=== PATIENT | male | born 1960 | race African-American/Black ===

== ENCOUNTER 2024-03-06 21:44 | Inpatient (IN) | payer OTHER ==
[2024-03-06 21:54] VITALS: BMI 27.7
[2024-03-06 23:26] LABS: HEMATOCRIT 33.1 % (35.4-49); HEMOGLOBIN 10.9 GM/dL (11.7-16.9); MCH 28.8 pg (25.7-33.7); MEAN CELL VOLUME 87.2 fl (80-96); MEAN PLT VOLUME 8.2 fl (7.5-11.1); PLATELET COUNT 320 10^3/uL (134-434); RDW 13.3 % (11.9-15.9); WHITE BLOOD COUNT 11.9 K/mm3 (4.0-10.0)
[2024-03-06 23:31] LABS: INR 1.2 (0.83-1.09); PROTHROMBIN TIME (PATIENT) 13.5 SEC (9.7-13.0)
[2024-03-06 23:33] LABS: ACTIVATED PTT 32.3 SECONDS (25.2-36.5)
[2024-03-06 23:45] LABS: POTASSIUM 3.3 mmol/L (3.5-5.1)
[2024-03-06] MEDS ORDERED: oxyCODONE HCL 5 MG TABLET ONE (23:45)
[2024-03-06 23:48] LABS: CALCIUM 8.6 mg/dL (8.5-10.1)
[2024-03-06 23:49] LABS: ALBUMIN 2.8 g/dl (3.4-5.0); BLOOD UREA NITROGEN 15.2 mg/dL (7-18); MAGNESIUM 2.2 mg/dL (1.8-2.4)
[2024-03-06] MEDS: oxyCODONE HCL 5 MG TABLET PO ONE (23:49)
[2024-03-06 23:52] LABS: CREATININE 0.9 mg/dL (0.55-1.3)
[2024-03-06 23:53] LABS: BILIRUBIN,TOTAL 0.4 mg/dL (0.2-1); TOT PROT 7.5 g/dl (6.4-8.2)
[2024-03-07 00:12] LABS: OVALOCYTE 1+; TEAR DROP CELLS 1+
[2024-03-07 00:15] LABS: ERYTHROCYTE SEDIMENTATION RATE 69 mm/hr (0-20)
[2024-03-07 00:16] LABS: PLATELET ESTIMATE ADEQUATE; SMUDGE CELLS FEW
[2024-03-07] MEDS ORDERED: VANCOMYCIN 2,000 MG in DEXTROSE 5%-WATER - 500 ML IVPB ONE (00:49)
[2024-03-07] MEDS ORDERED: CEFEPIME 2 GM/100 ML BAG IVPB ONE (00:54)
[2024-03-07] MEDS ORDERED: oxyCODONE HCL 10 MG SUSTAINED ACTING TABLET ONE (00:57)
[2024-03-07] MEDS: oxyCODONE HCL 10 MG SUSTAINED ACTING TABLET PO ONE (01:03)
[2024-03-07] MEDS: CEFEPIME HCL 2 GM VIAL (RESTRICTED TO ID) IVPB ONE (01:04)
[2024-03-07] MEDS: VANCOMYCIN/WATER 2 GRAMS 2,000 MG/400 ML PIGGYBACK IVPB ONE (02:18)
[2024-03-07] MEDS: PANTOPRAZOLE 40 MG TABLET PO SCH (04:26)
[2024-03-07] MEDS: oxyCODONE HCL 5 MG TABLET PO PRN (05:47)
[2024-03-07] MEDS: HEPARIN NA (PORCINE) 5,000 UNITS/ML 1ML VIAL SQ SCH (05:48)
[2024-03-07] MEDS: LEVOTHYROXINE NA 50 MCG TABLET (FP) PO SCH (06:04)
[2024-03-07] MEDS: KETOROLAC TROMETHAMINE 30 MG/1 ML VIAL IVPUSH ONE ×2 (06:39→22:44)
[2024-03-07] MEDS: INSULIN ASPART SLIDING SCALE (NOVOLOG) 1 VIAL SQ SCH (07:02)
[2024-03-07] MEDS ORDERED: oxyCODONE HCL 5 MG TABLET PO SCH (10:00)
[2024-03-07] MEDS: ASCORBIC ACID 500 MG TABLET (FP) PO SCH (10:39)
[2024-03-07] MEDS: GABAPENTIN 400 MG CAPSULE PO SCH (10:39)
[2024-03-07] MEDS: ZINC SULFATE 220 MG CAPSULE (FP) PO SCH (10:39)
[2024-03-07] MEDS: MULTIVITAMINS THER W-MINERALS COMBO TABLET (FP) PO SCH (10:39)
[2024-03-07] MEDS: DULoxetine HCL 30 MG CAPSULE.DR PO SCH (10:39)
[2024-03-07] MEDS: CHOLECALCIFEROL (VIT D3) 5000 UNITS (125 MCG) CAP PO SCH (10:40)
[2024-03-07] MEDS: ATORVASTATIN CA 20 MG TABLET (FP) PO SCH (22:44)
[2024-03-08] MEDS: oxyCODONE HCL 5 MG TABLET PO ONE ×2 (03:57→07:34)
[2024-03-08] MEDS ORDERED: oxyCODONE HCL 5 MG TABLET PO PRN (06:17)
[2024-03-08] MEDS: oxyCODONE HCL 5 MG TABLET PO PRN (11:13)
[2024-03-08] MEDS: COLLAGENASE CLOSTRIDIUM HIST. 30 GRAMS TUBE TP SCH (11:14)
[2024-03-08 11:35] LABS: BASO % 0.8 % (0-2.0); EOS % 3.4 % (0-4.5); HEMATOCRIT 33.1 % (35.4-49); LYMPH % 27.6 % (8-40); MCHC 33.1 g/dl (32.0-35.9); MEAN CELL VOLUME 87.7 fl (80-96); MEAN PLT VOLUME 7.8 fl (7.5-11.1); MONO % 11.5 % (3.8-10.2); NEUT % 56.7 % (42.8-82.8); PLATELET COUNT 323 10^3/uL (134-434); RBC 3.78 M/mm3 (4.00-5.60); RDW 13.5 % (11.9-15.9); WHITE BLOOD COUNT 8.5 K/mm3 (4.0-10.0)
[2024-03-08 11:55] LABS: CALCIUM 8.4 mg/dL (8.5-10.1)
[2024-03-08 11:58] LABS: CREATININE 0.8 mg/dL (0.55-1.3)
[2024-03-08] MEDS: oxyCODONE HCL 10 MG SUSTAINED ACTING TABLET PO SCH (22:08)
[2024-03-09 09:37] LABS: BASO % 0.9 % (0-2.0); EOS % 4.2 % (0-4.5); HEMOGLOBIN 11.3 GM/dL (11.7-16.9); LYMPH % 31.6 % (8-40); MCH 29.5 pg (25.7-33.7); MCHC 34.1 g/dl (32.0-35.9); MEAN CELL VOLUME 86.4 fl (80-96); MEAN PLT VOLUME 8.6 fl (7.5-11.1); MONO % 11.4 % (3.8-10.2); NEUT % 51.9 % (42.8-82.8); PLATELET COUNT 355 10^3/uL (134-434); RBC 3.82 M/mm3 (4.00-5.60); RDW 13.6 % (11.9-15.9); WHITE BLOOD COUNT 8.1 K/mm3 (4.0-10.0)
[2024-03-09 10:31] LABS: ERYTHROCYTE SEDIMENTATION RATE 85 mm/hr (0-20)
[2024-03-10] MEDS ORDERED: LATANOPROST 0.005% OPHTH SOLN 2.5ML BOTTLE OU ONE (04:36)
[2024-03-10] MEDS: LATANOPROST 0.005% OPHTH SOLN 2.5ML BOTTLE OU SCH (06:23)
[2024-03-11 09:39] LABS: BASO % 1.1 % (0-2.0); EOS % 4.5 % (0-4.5); HEMATOCRIT 34.1 % (35.4-49); HEMOGLOBIN 11.8 GM/dL (11.7-16.9); LYMPH % 29.3 % (8-40); MCH 30.3 pg (25.7-33.7); MCHC 34.7 g/dl (32.0-35.9); MEAN CELL VOLUME 87.2 fl (80-96); MEAN PLT VOLUME 8.7 fl (7.5-11.1); MONO % 11.1 % (3.8-10.2); PLATELET COUNT 372 10^3/uL (134-434); RBC 3.91 M/mm3 (4.00-5.60); RDW 13.8 % (11.9-15.9); WHITE BLOOD COUNT 7.5 K/mm3 (4.0-10.0)
[2024-03-11 10:40] LABS: ERYTHROCYTE SEDIMENTATION RATE 87 mm/hr (0-20)
[2024-03-11] MEDS: LEVOTHYROXINE NA 50 MCG TABLET (FP) PO ONE (11:51)
[2024-03-11 18:32] LABS: INR 1.08 (0.83-1.09); PROTHROMBIN TIME (PATIENT) 12.4 SEC (9.7-13.0)
[2024-03-12] MEDS ORDERED: BUPIVACAINE HCL/PF 0.5% (5MG/ML) 10 ML VIAL ONE (07:13)
[2024-03-12] MEDS ORDERED: LIDOCAINE HCL 1%, 10 MG/ML (20ML VIAL) ONE (07:13)
[2024-03-12] MEDS ORDERED: PROPOFOL 20 ML ONE (07:26)
[2024-03-12] MEDS ORDERED: SUCCINYLCHOLINE CHLORIDE 200 MG/10 ML SYRINGE ONE (07:26)
[2024-03-12] MEDS ORDERED: MIDAZOLAM HCL 2 MG/2 ML SINGLE DOSE VIAL ONE ×2 (07:26→07:42)
[2024-03-12] MEDS: LIDOCAINE HCL 1%, 10 MG/ML (20ML VIAL) NR ONE (07:42)
[2024-03-12] MEDS ORDERED: PROMETHAZINE HCL 25 MG/1 ML VIAL IVPB PRN (09:29)
[2024-03-12] MEDS: LACTATED RINGERS SOLUTION 1,000 ML IV SCH (09:30)
[2024-03-12] MEDS: CHOLECALCIFEROL (VIT D3) 5000 UNITS (125 MCG) CAP PO SCH (10:28)
[2024-03-12] MEDS: ZINC SULFATE 220 MG CAPSULE (FP) PO SCH (10:28)
[2024-03-12] MEDS: GABAPENTIN 400 MG CAPSULE PO SCH (10:30)
[2024-03-12] MEDS: MULTIVITAMINS THER W-MINERALS COMBO TABLET (FP) PO SCH (10:30)
[2024-03-12] MEDS: PANTOPRAZOLE 40 MG TABLET PO SCH (10:30)
[2024-03-12] MEDS: DULoxetine HCL 30 MG CAPSULE.DR PO SCH (10:30)
[2024-03-12] MEDS: ASCORBIC ACID 500 MG TABLET (FP) PO SCH (10:30)
[2024-03-12] MEDS: oxyCODONE HCL 10 MG SUSTAINED ACTING TABLET PO SCH (10:31)
[2024-03-12] MEDS: COLLAGENASE CLOSTRIDIUM HIST. 30 GRAMS TUBE TP SCH (10:34)
[2024-03-12] MEDS: oxyCODONE HCL 5 MG TABLET PO PRN (11:58)
[2024-03-12] MEDS: INSULIN ASPART SLIDING SCALE (NOVOLOG) 1 VIAL SQ SCH (12:07)
[2024-03-12] MEDS ORDERED: CEFEPIME HCL 1 GM VIAL (RESTRICTED TO ID) IVPB SCH (13:00)
[2024-03-12] MEDS: PIPERACILLIN/TAZOB 3.375 GM 3.375 GM in DEXTROSE 5%-WATER - 50 ML IVPB SCH (15:20)
[2024-03-12] MEDS: VANCOMYCIN/WATER 1250 MG 1,250 MG/250 ML BAG IVPB SCH (16:31)
[2024-03-12] MEDS ORDERED: PIPERACILLIN/TAZOBACTAM 3.375 GM VIAL IVPB ONE (21:01)
[2024-03-12] MEDS: LATANOPROST 0.005% OPHTH SOLN 2.5ML BOTTLE OU SCH (22:12)
[2024-03-12] MEDS: ATORVASTATIN CA 20 MG TABLET (FP) PO SCH (22:12)
[2024-03-13] MEDS: VANCOMYCIN/WATER FOR INJ (PEG) 1,000 MG/200 ML BAG IVPB SCH (05:06)
[2024-03-13] MEDS: LEVOTHYROXINE NA 50 MCG TABLET (FP) PO SCH (06:15)
[2024-03-13 19:00] LABS: BASO % 1.1 % (0-2.0); EOS % 4.5 % (0-4.5); HEMATOCRIT 33.3 % (35.4-49); LYMPH % 31.1 % (8-40); MCH 29.1 pg (25.7-33.7); MEAN CELL VOLUME 88.2 fl (80-96); MONO % 11.6 % (3.8-10.2); NEUT % 51.7 % (42.8-82.8); PLATELET COUNT 328 10^3/uL (134-434); RBC 3.78 M/mm3 (4.00-5.60); RDW 13.8 % (11.9-15.9); WHITE BLOOD COUNT 8.3 K/mm3 (4.0-10.0)
[2024-03-14 09:07] LABS: POTASSIUM 4.6 mmol/L (3.5-5.1)
[2024-03-14 09:08] LABS: CALCIUM 9.1 mg/dL (8.5-10.1)
[2024-03-14 09:09] LABS: BLOOD UREA NITROGEN 17.3 mg/dL (7-18)
[2024-03-14 09:12] LABS: CREATININE 0.9 mg/dL (0.55-1.3)
[2024-03-15] MEDS: ERTAPENEM SODIUM 1 GM in SODIUM CHLORIDE 50 ML IVPB SCH (11:15)
[2024-03-15] MEDS: INSULIN ASPART SLIDING SCALE (NOVOLOG) 1 VIAL SQ SCH (12:06)
[2024-03-16 09:40] LABS: EOS % 5.8 % (0-4.5); HEMATOCRIT 32.3 % (35.4-49); HEMOGLOBIN 10.8 GM/dL (11.7-16.9); LYMPH % 30.9 % (8-40); MCH 29.1 pg (25.7-33.7); MCHC 33.6 g/dl (32.0-35.9); MEAN CELL VOLUME 86.9 fl (80-96); MEAN PLT VOLUME 7.7 fl (7.5-11.1); MONO % 11.6 % (3.8-10.2); NEUT % 50.7 % (42.8-82.8); PLATELET COUNT 285 10^3/uL (134-434); RBC 3.72 M/mm3 (4.00-5.60); RDW 13.8 % (11.9-15.9); WHITE BLOOD COUNT 6.8 K/mm3 (4.0-10.0)
[2024-03-16 10:09] LABS: ERYTHROCYTE SEDIMENTATION RATE 92 mm/hr (0-20)
[2024-03-16] MEDS: DAPTOMYCIN 750 MG in SODIUM CHLORIDE 50 ML IVPB SCH ×2 (16:46→16:47)
[2024-03-19 11:28] LABS: BASO % 1.1 % (0-2.0); EOS % 8.8 % (0-4.5); HEMATOCRIT 35.8 % (35.4-49); HEMOGLOBIN 12.1 GM/dL (11.7-16.9); LYMPH % 34.3 % (8-40); MCH 29.5 pg (25.7-33.7); MCHC 33.9 g/dl (32.0-35.9); MEAN CELL VOLUME 86.9 fl (80-96); MONO % 10.1 % (3.8-10.2); NEUT % 45.7 % (42.8-82.8); PLATELET COUNT 298 10^3/uL (134-434); RBC 4.12 M/mm3 (4.00-5.60); RDW 13.8 % (11.9-15.9); WHITE BLOOD COUNT 6.4 K/mm3 (4.0-10.0)
[2024-03-19 11:51] LABS: POTASSIUM 4.4 mmol/L (3.5-5.1)
[2024-03-19 11:58] LABS: BLOOD UREA NITROGEN 19.1 mg/dL (7-18)
[2024-03-19 12:03] LABS: CREATININE 0.9 mg/dL (0.55-1.3)
[2024-03-19 16:07] VITALS: RESP 18
[2024-03-19 18:52] VITALS: BP 144/63; PULSE 73; TEMP 98
== END 2024-03-19 19:18 | disposition home or self-care (01) | DRG 638 ==
LOC: JER 21:44 → JERBED 03-07 02:56 → J5S 03-07 05:34
PROVIDERS: ADMIT Internal Medicine; ATTEND Internal Medicine
PROC: 0YB Anatomical Regions, Lower Extremities, Excision (ICD-10-PCS; principal; 2024-03-12 07:30)
PROC: 02HV33Z Insertion of Infusion Device into Superior Vena Cava, Percutaneous Approach (ICD-10-PCS; 2024-03-19)
PROC: B518ZZA Fluoroscopy of Superior Vena Cava, Guidance (ICD-10-PCS; 2024-03-19)
DX: E11.69 Type 2 diabetes mellitus with other specified complication (principal); L03.116 Cellulitis of left lower limb; M86.172 Other acute osteomyelitis, left ankle and foot; L97.528 Non-pressure chronic ulcer of other part of left foot with other specified severity; E11.621 Type 2 diabetes mellitus with foot ulcer; E11.51 Type 2 diabetes mellitus with diabetic peripheral angiopathy without gangrene; E11.42 Type 2 diabetes mellitus with diabetic polyneuropathy; I10 Essential (primary) hypertension; E78.5 Hyperlipidemia, unspecified; E03.9 Hypothyroidism, unspecified; D63.8 Anemia in other chronic diseases classified elsewhere; G47.00 Insomnia, unspecified; R94.31 Abnormal electrocardiogram [ECG] [EKG]; F41.8 Other specified anxiety disorders; E87.6 Hypokalemia; B95.4 Other streptococcus as the cause of diseases classified elsewhere; B95.62 Methicillin resistant Staphylococcus aureus infection as the cause of diseases classified elsewhere; Z89.511 Acquired absence of right leg below knee
CPT/HCPCS: 36415; 36569; 73610-TC-LT-FY; 73630-TC-LT; 73718-TC-LT; 75635-TC; 80048; 80053; 82550; 82962; 83036; 83735; 85025; 85610; 85651; 85730; 86140; 86850; 86900; 86901; 87040; 87070; 87075; 87076; 87186; 87205; 93005; 93010; 93306-TC; 94760; 99285-25; G0480; J0878; J1644; Q9967

== ENCOUNTER 2024-05-21 08:44 | Emergency (ER) | payer OTHER ==
[2024-05-21 08:53] VITALS: BP 190/91; PULSE 94; RESP 16; TEMP 97.7; BMI 27.0
[2024-05-21] MEDS ORDERED: oxyCODONE HCL 5 MG TABLET ONE (09:20)
[2024-05-21] MEDS: oxyCODONE HCL 5 MG TABLET PO ONE (09:22)
== END 2024-05-21 09:57 | disposition home or self-care (01) ==
LOC: JER 08:44 → JERFT 08:44
DX: J02.9 Acute pharyngitis, unspecified (principal); R05.9 Cough, unspecified; R53.81 Other malaise; Z20.822 Contact with and (suspected) exposure to COVID-19
CPT/HCPCS: 0241U-QW; 99283-25

== ENCOUNTER 2024-10-05 04:16 | Day surgery (SDC) | payer OTHER ==
[2024-10-05] MEDS ORDERED: ceFAZolin SODIUM 1 GM VIAL ONE (06:53)
[2024-10-05] MEDS: CEFAZOLIN 2 GM/D5W 2 GM/50 ML ML IVPB ONE (06:55)
[2024-10-05 07:13] VITALS: BMI 27.0
[2024-10-05] MEDS ORDERED: ACETAMINOPHEN 500 MG TABLET (FP) PO PRN (08:37)
[2024-10-05] MEDS: LIDOCAINE HCL 1% PRESERVATIVE FREE - 30ML VIAL IJ ONE ×2 (08:38)
[2024-10-05] MEDS: LIDOCAINE HCL/PF 2% SDV 5ML VIAL INF ONE ×2 (08:40)
[2024-10-05 09:40] VITALS: BP 127/60; PULSE 84; RESP 16; TEMP 98
== END 2024-10-05 10:53 | disposition home or self-care (01) ==
LOC: JASU-SURG 04:16
PROVIDERS: ATTEND Pain Medicine Pain Medicine
PROC: 00HU3MZ Insertion of Neurostimulator Lead into Spinal Canal, Percutaneous Approach (ICD-10-PCS; principal; 2024-10-05 08:00)
DX: G89.4 Chronic pain syndrome (principal); M96.1 Postlaminectomy syndrome, not elsewhere classified; M54.16 Radiculopathy, lumbar region
CPT/HCPCS: 63650; C1778; 76000-TC-FY; 82962; C1889; C1897